=== PATIENT | male | born 1995 | race Caucasian/White ===

== ENCOUNTER 2020-01-07 08:30 | Emergency (ER) | payer OTHER, SELFPAY ==
[2020-01-07 08:44] VITALS: BP 116/62; PULSE 68; RESP 18; TEMP 36.5; O2SAT 100
--- NOTE | 2020-01-07 08:54 | ED.EAR ---
HPI - Ear Problem General Chief complaint: Ear Stated complaint: Ear congestion Time Seen by Provider: 01/07/20 08:50 Source: patient Mode of arrival: ambulatory Limitations: no limitations History of Present Illness HPI Narrative: William Kelly is a 24 yo male with no PMH is is here because of loss of balance because of earwax bilaterally. He has made no attempt to use OTC products to loosen the wax in his ears. States that it has started to affect his balance Related Data Allergies Allergy/AdvReac Type Severity Reaction Status Date / Time Penicillins Allergy Intermediate Rash Verified 01/07/20 08:44 codeine Allergy Unknown Nausea Verified 01/07/20 08:44 Review of Systems Review of Systems: Narrative: CONSTITUTIONAL: Denies fever, chills, sweats. EYES: Denies visual changes, redness, discharge. ENT: Denies rhinorrhea, congestion, sore throat, otalgia. Bilateral ear wax CARDIOVASCULAR: Denies chest pain, palpitations, edema. RESPIRATORY: Denies dyspnea, wheezing, cough GASTROINTESTINAL: Denies abdominal pain, nausea, vomiting, diarrhea. GENITOURINARY: Denies dysuria, hematuria, abnormal discharge SKIN: Denies rash or itching. NEUROLOGIC: Denies numbness, or focal weakness. PSYCHIATRIC: Denies anxiety or depression. [facility] Family History Family History Other No active medical problems Social History Social History (Updated 01/07/20 @ 08:58 by Nury Cain CNP) Smoking status: Never smoker Comments [facility] note Exam Narrative: Exam Narrative: GENERAL: This is a well-nourished, well-developed patient, no apparent distress. HEAD: normocephalic, atraumatic. EYES: Sclera clear/white. Vision is grossly intact. EARS: External ears normal, auditory canals mild impacted cerumen L>R, Hearing grossly intact. NOSE: External nose normal with no obvious nasal discharge, nares without redness, no rhinorrhea. THROAT: Mucous membranes moist, posterior pharynx clear. NECK: Neck supple, non-tender CARDIOVASCULAR: Regular rate and rhythm without murmurs, gallops, or rubs. RESPIRATORY: Clear to auscultation. Breath sounds equal bilaterally. No wheezes, rales, or rhonchi. GASTROINTESTINAL: Abdomen soft, SKIN: warm, intact with no suspicious lesions or rash, good texture and turgor. NEURO: awake, alert, and oriented to person, place and time. There were no obvious focal neurologic abnormalities. Steady gait EXTREMITIES: Normal range of motion. BACK: Nontender without deformity . Course Course Emergency Course: Debrox eardrops and meclizine Vital Signs Vital signs: Vital Signs Temperature 97.7 F 01/07/20 08:44 Pulse Rate 68 01/07/20 08:44 Respiratory Rate 18 01/07/20 08:44 Blood Pressure 116/62 01/07/20 08:44 Pulse Oximetry 100 01/07/20 08:44 Temperature 97.7 F 01/07/20 08:44 Pulse Rate 68 01/07/20 08:44 Respiratory Rate 18 01/07/20 08:44 Blood Pressure 116/62 01/07/20 08:44 Pulse Oximetry 100 01/07/20 08:44 Medical Decision Making Differential Diagnosis Differential Diagnosis: Cerumen versus otitis media Vital Signs Vital Signs: Vital Signs Temperature 97.7 F 01/07/20 08:44 Pulse Rate 68 01/07/20 08:44 Respiratory Rate 18 01/07/20 08:44 Blood Pressure 116/62 01/07/20 08:44 Pulse Oximetry 100 01/07/20 08:44 Temperature 97.7 F 01/07/20 08:44 Pulse Rate 68 01/07/20 08:44 Respiratory Rate 18 01/07/20 08:44 Blood Pressure 116/62 01/07/20 08:44 Pulse Oximetry 100 01/07/20 08:44 Discharge Plan Discharge Clinical Impression: Excessive cerumen in ear canal Qualifiers: Laterality: bilateral Qualified Code(s): H61.23 - Impacted cerumen, bilateral Patient Disposition: Home, Self-Care Condition: Stable Instructions: Antibiotic Form Prescriptions: New carbamide peroxide [Debrox] 6.5 % drops 10 drop LEFTEAR Q12H 4 Days Qty: 15 RF: 0 meclizine 25 mg tablet
== END 2020-01-07 08:55 | disposition home or self-care (01) ==
PROVIDERS: Emergency Provider Nurse Practitioner
DX: H61.23 Impacted cerumen, bilateral (principal)
CPT/HCPCS: 99213; G0463

== ENCOUNTER 2020-07-31 16:48 | Emergency (ER) | payer OTHER, SELFPAY ==
[2020-07-31 17:00] VITALS: BP 116/82; PULSE 80; RESP 16; TEMP 37.2; O2SAT 100
--- NOTE | 2020-07-31 17:51 | ED.ANXIETY ---
HPI - Anxiety General Chief Complaint: Anxiety Stated Complaint: Non-verbal suddenly per gf, possible anxiety Time Seen by Provider: 07/31/20 17:51 Source: patient Mode of arrival: ambulatory Limitations: no limitations History of Present Illness HPI narrative: Patient is a 25-year-old male with history of anxiety and depression who presents for evaluation of what he believes is a anxiety attack. Patient states that he and his girlfriend were arguing, when he felt that time was standing still, and felt like he was dazed. He still remembers everything that was happening. Patient's girlfriend thought he was having trouble speaking to her, but he states that he was not. No loss of consciousness. No seizure activity. No tongue biting or urinary incontinence. Patient states he was feeling very anxious and believes that exacerbated everything. He denies any numbness or weakness. He denies any chest pain or shortness of breath. Patient states he currently feels well without any pain or symptoms. Patient's girlfriend states he is currently acting appropriately and normally at this point. He has no current complaints. Patient is declining any blood draw or imaging studies. Patient states he has been eating and drinking today. Related Data Home Medications Medication Instructions Recorded Confirmed No Home Medications 07/31/20 07/31/20 Allergies Allergy/AdvReac Type Severity Reaction Status Date / Time Penicillins Allergy Intermediate Rash Verified 07/31/20 17:04 codeine Allergy Unknown Nausea Verified 07/31/20 17:04 Review of Systems Review of Systems: Narrative: CONSTITUTIONAL: Denies fever, chills, or sweats. EYES: Denies visual changes, redness, or discharge. ENT: Denies rhinorrhea, congestion, sore throat, or otalgia. CARDIOVASCULAR: Denies chest pain, palpitations, or edema. RESPIRATORY: Denies cough or dyspnea. GASTROINTESTINAL: Denies abdominal pain, nausea, vomiting, or diarrhea. GENITOURINARY: Denies dysuria or hematuria. SKIN: Denies rash or itching. MUSCULOSKELETAL: Denies back pain, joint pain, or myalgia. NEUROLOGIC: Denies headache, numbness, or weakness. PSYCHIATRIC: Reports anxiety and depression PMFSH Past Medical History Medical History Anxiety Depression Family History Family History Other No active medical problems Social History Social History (Updated 01/07/20 @ 08:58 by Nury Cain CNP) Smoking status: Never smoker Exam Narrative: Exam Narrative: GENERAL: Awake, alert, conversant HEAD: Normocephalic, atraumatic. EYES: PERRLA and EOMI. ENT: Nares clear, no rhinorrhea or epistaxis. Mucous membranes moist. NECK: Supple. CHEST: No respiratory distress, breathing even and non labored HEART: Regular rate, sinus rhythm ABDOMEN:Non distended, non tender EXTREMITIES: Normal range of motion. No edema. SKIN: Warm, dry, no rash. NEURO:No focal deficits. Alert and oriented x3. Finger to nose intact bilaterally. EOMs intact without nystagmus. No facial droop/asymmetry noted bilaterally. Grimace intact. Intact sensation in face. Hearing intact bilaterally. Shoulder shrug intact. Strength 5/5 bilateral upper extremities. Strength 5/5 bilateral lower extremities. Reflexes 2+ patellar. Heel to [place] intact bilaterally. Ambulatory with a narrow base, steady gait. No ataxia. Course Vital Signs Vital signs: Vital Signs Temperature 37.2 C 07/31/20 17:00 Pulse Rate 80 07/31/20 17:00 Respiratory Rate 16 07/31/20 17:00 Blood Pressure 116/82 07/31/20 17:00 Pulse Oximetry 100 07/31/20 17:00 Temperature 37.2 C 07/31/20 17:00 Pulse Rate 80 07/31/20 17:00 Respiratory Rate 16 07/31/20 17:00 Blood Pressure 116/82 07/31/20 17:00 Pulse Oximetry 100 07/31/20 17:00 MDM - Anxiety MDM Narrative Medical decision making narrative: Patient presented for evalu
== END 2020-07-31 18:44 | disposition home or self-care (01) ==
PROVIDERS: Emergency Provider Emergency Medicine
DX: F41.9 Anxiety disorder, unspecified (principal)
CPT/HCPCS: 99281